=== PATIENT | female | born 1975 | race African-American/Black ===

== ENCOUNTER 2021-04-14 16:52 | Emergency (ER) | payer OTHER, MEDICAID ==
[~2021-04-14] VITALS: Ht 167.6 cm; Wt 61.0 kg
[2021-04-14] MEDS ORDERED: MORPHINE SULFATE 4 MG/ML CPJ (NOT FOR IM USE) IV ONE (18:00)
[2021-04-14] MEDS ORDERED: LIDOCAINE HCL 1% 20ML VIAL (Pyxis) INJ INFIL ONE (19:00)
[2021-04-14] MEDS ORDERED: KETOROLAC 30MG/ML VIAL IV ONE (19:15)
[2021-04-14] MEDS ORDERED: NAPR500T7 MT (19:42)
[2021-04-14 20:30] VITALS: BP 114/70
== END 2021-04-14 20:30 | disposition home or self-care (01) ==
LOC: ER 16:52
DX: S43.004A Unspecified dislocation of right shoulder joint, initial encounter (principal); Z79.899 Other long term (current) drug therapy; X58.XXXA Exposure to other specified factors, initial encounter; Y93.89 Activity, other specified; Y92.89 Other specified places as the place of occurrence of the external cause; Y99.8 Other external cause status
CPT/HCPCS: 73030; 96374; 99285; J2270